=== PATIENT | male | born 1960 | race African-American/Black ===

== ENCOUNTER 2018-10-16 01:11 | Emergency (ER) | payer OTHER ==
--- NOTE | 2018-10-16 01:59 | ER Document Report ---
ED Psych Disorder / Suicide - General Chief Complaint: Psych Problem Stated Complaint: IVC WITH PAPERS Time Seen by Provider: 10/16/18 01:59 Primary Care Provider: HEIDY UNDERWOOD MD [ACTIVE STAFF] - Follow up as needed Mode of Arrival: Ambulatory Information source: Patient, Law Enforcement Notes: HISTORY OF PRESENT ILLNESS: Patient is a 57-year-old male with a past medical history of diabetes, hypertension, and substance abuse who presents with aggressive behavior who has been involuntarily committed by police after the patient became combative toward his and exhibiting psychotic behavior. Onset: Prior to arrival Provocation: Unknown Quality: Agitation Radiation: None Severity: Moderate Timing: Episodic SI/HI: None Hallucinations: None Current therapist: None Current treatment: None REVIEW OF SYSTEMS: CONSTITUTIONAL : Denies fever or chills, no sweats. Denies recent illness. EENT: Denies eye, ear, throat, or mouth pain or symptoms. Denies nasal or sinus congestion. CARDIOVASCULAR: Denies chest pain. RESPIRATORY: Denies cough, cold, or chest congestion. Denies shortness of breath, difficulty breathing, or wheezing. GASTROINTESTINAL: Denies abdominal pain. Denies nausea, vomiting, or diarrhea. Denies constipation. GENITOURINARY: Denies difficulty urinating, painful urination, burning, frequency, or blood in urine. FEMALE GENITOURINARY: Denies vaginal bleeding, abnormal or irregular periods. Last menstrual period MUSCULOSKELETAL: Denies neck or back pain or joint pain or swelling. SKIN: Denies rash or skin lesions. HEMATOLOGIC : Denies easy bruising or bleeding. LYMPHATIC: Denies swollen, enlarged glands. NEUROLOGICAL: Denies altered mental status or loss of consciousness. Denies headache. Denies weakness or paralysis or loss of use of either side. Denies problems with gait or speech. Denies sensory or motor loss. PSYCHIATRIC: Positive for acute aggression and agitation. Denies suicidal/homicidal thoughts. Denies anxiety or stress or depression. All other systems reviewed and negative. PHYSICAL EXAMINATION: GENERAL: Well-appearing, well-nourished and in no acute distress. HEAD: Atraumatic, normocephalic. No scalp deformity, depression, or crepitance. EYES: Pupils are 3 mm and equal/round/reactive to light, extraocular movements intact, sclera anicteric, conjunctiva are normal. ENT: Nares patent bilaterally, oropharynx clear without exudates or palatal petechia. Moist mucous membranes. No tonsil hypertrophy. NECK: Normal range of motion, supple without lymphadenopathy. LUNGS: Breath sounds present, equal, and clear to auscultation bilaterally. No wheezes, rales, or rhonchi. HEART: Regular rate and rhythm without murmurs, rubs, or gallops. 2+ peripheral pulses. Normal capillary refill. ABDOMEN: Soft, nontender, nondistended. Normoactive bowel sounds. No guarding, no rebound. No masses appreciated. BACK: Normal contour, no midline tenderness. Rectal exam deferred. GENITAL/PELVC: Deferred. EXTREMITIES: Normal range of motion, no pitting or edema. No cyanosis. NEUROLOGICAL: No focal neurological deficits. Moves all extremities spontaneously and on command. PSYCH: Normal mood, normal affect. No suicidal thoughts/ideations. No homicidal thoughts/ideations. No hallucinations. SKIN: Warm, dry, normal turgor, no rashes or lesions noted. ASSESSMENT AND PLAN: This patient is a 57-year-old male who presents with acute agitation and aggression toward his that is most likely secondary to substance abuse versus acute psychosis. 1. Will obtain medical clearance and maintain involuntary commitment for inpatient referral and evaluation. 2. Will observe overnight. TRAVEL OUTSIDE OF THE [place] IN LAST 30 DAYS: No - Related Data Allergies/Adverse Reactions: No Known Allergies Allergy (Unverified 09/01/11 06:42) Past Medical History - General Information source: Patient, Law Enforcement - Social History Smoking Status: Former Smoker Chew tobacco use (# tins/day): No Frequency of alcohol use: None Drug Abuse: None Lives with: Family Family History: Reviewed & Not Pertinent Patient has suicidal ideation: No Patient has homicidal ideation: No - Past Medical History Cardiac Medical History: Reports: Hx Hypercholesterolemia, Hx Hypertension Denies: Hx Atrial Fibrillation, Hx Congestive Heart Failure, Hx Coronary Artery Disease, Hx Heart Attack, Hx Peripheral Vascular Disease, Hx Pulmonary Embolism, Hx Heart Murmur Pulmonary Medical History: Reports: None Denies: Hx Asthma, Hx Bronchitis, Hx COPD, Hx Pneumonia, Hx Respiratory Failure, Hx Sleep Apnea, Hx Tuberculosis EENT Medical History: Reports: None Neurological Medical History: Reports: None. Denies: Hx Cerebrovascular Accident, Hx Seizures Endocrine Medical History: Reports: Hx Diabetes Mellitus Type 2. Denies: Hx Graves' Disease, Hx Hyperthyroidism, Hx Hypothyroidism Renal/ Medical History: Reports: None. Denies: Hx Benign Prostatic Hyperplasia, Hx End Stage Renal Disease, Hx Kidney Stones, Hx Peritoneal Dialysis Malignancy Medical History: Reports None, Denies Hx Lung Cancer GI Medical History: Reports: None. Denies: Hx Crohn's Disease, Hx Gastroesophageal Reflux Disease, Hx Hiatal Hernia, Hx Irritable Bowel, Hx Liver Failure, Hx Pancreatitis, Hx Ulcer Musculoskeletal Medical History: Reports None, Denies Hx Arthritis, Denies Hx Fibromyalgia, Denies Hx Multiple Sclerosis, Denies Hx Muscular Dystrophy Skin Medical History: Reports None Psychiatric Medical History: Reports: Hx Depression Denies: Hx Bipolar Disorder, Hx Dementia, Hx Post Traumatic Stress Disorder, Hx Schizophrenia Traumatic Medical History: Reports: None. Denies: Hx Fractures Infectious Medical History: Reports: None Past Surgical History: Reports: Hx Orthopedic Surgery. Denies: Hx Appendectomy, Hx Bowel Surgery, Hx Cholecystectomy, Hx Colostomy, Hx Coronary Artery Bypass Graft, Hx Gastric Bypass Surgery, Hx Herniorrhaphy, Hx Pacemaker, Hx Tonsillectomy - Immunizations Hx Diphtheria, Pertussis, Tetanus Vaccination: Yes Physical Exam - Vital signs Vitals: Temp Pulse Resp BP Pulse Ox 98.2 F 105 H 16 161/104 H 97 10/16/18 01:24 10/16/18 01:24 10/16/18 01:24 10/16/18 01:24 10/16/18 01:24 Course - Vital Signs Vital signs: Temp Pulse Resp BP Pulse Ox 98.2 F 105 H 16 161/104 H 97 10/16/18 01:24 10/16/18 01:24 10/16/18 01:24 10/16/18 01:24 10/16/18 01:24 - Laboratory Result Diagrams: 10/16/18 03:05 10/16/18 03:05 - EKG Interpretation by Nv EKG shows normal: Sinus rhythm Rate: Normal Rhythm: NSR Kimball/QRS: No: Right axis deviation, Left axis deviation, RBBB, LBBB, IVCD, LAHB/LAFB, LPHB/LPFB, Bifasicular block Voltage: No: Increased voltage, Consistant with LVH, Decreased voltage, Throughout, Limb leads P Waves: No: ISABEL, LAE, Absent, AV Dissociation, Other Heart block present: No: 1st Degree, Mobitz 1, Mobitz 2, CHB (3rd degree block) When compared to previous EKG there are: No significant change Discharge - Discharge Clinical Impression: Acute psychosis Condition: Stable Disposition: PSYCH HOSP/UNIT Referrals: HEIDY UNDERWOOD MD [ACTIVE STAFF] - Follow up as needed
[2018-10-16 03:38] LABS: ALANINE AMINOTRANSFERASE 15 U/L (21-72); ALBUMIN 3.5 g/dL (3.5-5.0); ALKALINE PHOSPHATASE 89 U/L (38-126); ANION GAP 10 (5-19); ASPARTATE AMINO TRANSFERASE 14 U/L (17-59); BILIRUBIN,DIRECT 0.3 mg/dL (0.0-0.4); BILIRUBIN,TOTAL 0.3 mg/dL (0.2-1.3); BLOOD UREA NITROGEN 20 mg/dL (7-20); CALCIUM 9.2 mg/dL (8.4-10.2); CARBON DIOXIDE 23 mmol/L (22-30); CHLORIDE 103 mmol/L (98-107); POTASSIUM 4.1 mmol/L (3.6-5.0); SODIUM 135.9 mmol/L (137-145); TOTAL PROTEIN 6.4 g/dL (6.3-8.2)
[2018-10-16 03:48] LABS: ACETAMINOPHEN < 10 ug/mL (10-30); ALCOHOL < 10 mg/dL (NONE DETECTED); SALICYLATE < 1.0 mg/dL (2.0-20.0)
[2018-10-16 03:50] LABS: GLUCOSE 493 mg/dL (75-110)
[2018-10-16 03:51] LABS: APPEARANCE,URINE CLEAR; BILIRUBIN,URINE NEGATIVE (NEGATIVE); COLOR,URINE STRAW; GLUCOSE, URINE >=500 mg/dL (NEGATIVE); KETONES,URINE TRACE mg/dL (NEGATIVE); LEUKOCYTE ESTERASE,URINE NEGATIVE (NEGATIVE); NITRITE,URINE NEGATIVE (NEGATIVE); PROTEIN,URINE NEGATIVE (NEGATIVE); URINE SPECIFIC GRAVITY 1.028; UROBILINOGEN,URINE NEGATIVE mg/dL (<2.0)
[2018-10-16] MEDS ORDERED: NORMAL SALINE 1000 ML 1,000 ML IV ONE (03:55)
[2018-10-16] MEDS ORDERED: INSULIN REG, HUMAN 100 UNIT/ML 3 ML VIAL (PYX) IV ONE (03:56)
[2018-10-16 04:06] LABS: URINE AMPHETAMINES SCREEN NEGATIVE; URINE BARBITURATES SCREEN NEGATIVE; URINE BENZODIAZEPINES SCREEN NEGATIVE; URINE COCAINE SCREEN NEGATIVE; URINE MARIJUANA (THC) SCREEN NEGATIVE; URINE METHADONE SCREEN NEGATIVE; URINE PHENCYCLIDINE SCREEN NEGATIVE
[2018-10-16 05:18] LABS: ABSOLUTE BASOPHILS # (AUTO) 0.1 10^3/uL (0.0-0.2); ABSOLUTE EOSINOPHILS # (AUTO) 0.1 10^3/uL (0.0-0.6); ABSOLUTE LYMPHOCYTES (AUTO) 1.5 10^3/uL (0.5-4.7); ABSOLUTE MONOCYTES (AUTO) 0.5 10^3/uL (0.1-1.4); ABSOLUTE NEUT (AUTO) 3.6 10^3/uL (1.7-8.2); BASOPHILS % (AUTO) 1.3 % (0-2); EOSINOPHILS % (AUTO) 1.1 % (0-6); HEMATOCRIT 38.2 % (37.9-51.0); HEMOGLOBIN 12.9 g/dL (13.5-17.0); LYMPHOCYTES % (AUTO) 26.3 % (13-45); MEAN CORPUSCULAR HEMOGLOBIN 28.5 pg (27.0-33.4); MEAN CORPUSCULAR HGB CONC 33.7 g/dL (32.0-36.0); MEAN CORPUSCULAR VOLUME 85 fl (80-97); MONOCYTES % (AUTO) 9.1 % (3-13); PLATELET COUNT 200 10^3/uL (150-450); RED BLOOD COUNT 4.52 10^6/uL (4.35-5.55); RED CELL DISTRIBUTION WIDTH 13.1 % (11.5-14.0); SEGMENTED NEUTROPHILS % (AUTO) 62.2 % (42-78); TOTAL CELLS COUNTED % (AUTO) 100 %; WHITE BLOOD COUNT 5.8 10^3/uL (4.0-10.5)
[2018-10-16] MEDS ORDERED: INSULIN REG, HUMAN 100 UNIT/ML 3 ML VIAL (PYX) SUBCUT ONE (09:30)
[2018-10-16] MEDS ORDERED: METFORMIN HCL 500 MG TABLET PO SCH (10:00)
[2018-10-16] MEDS ORDERED: DEXTROSE 40% GEL 15 GM TUBE PO PRN ×2 (13:37)
[2018-10-16] MEDS ORDERED: GLUCAGON,HUMAN RECOMB 1 MG INJ IM PRN (13:37)
[2018-10-16] MEDS ORDERED: DEXTROSE 50%-WATER 25 GM/50 ML DISP.SYRIN IV PRN ×2 (13:37)
[2018-10-16] MEDS: INSULIN REG, HUMAN 100 UNIT/ML 3 ML VIAL (PYX) SUBCUT SCH ×3 (14:00→22:23)
[2018-10-16] MEDS ORDERED: INSULIN REG, HUMAN 100 UNIT/ML 3 ML VIAL (PYX) SUBCUT SCH (16:00)
[2018-10-16] MEDS ORDERED: BENZTROPINE MESYLATE 1 MG TABLET PO ONE (16:55)
--- NOTE | 2018-10-16 16:59 | ER Document Report ---
Doctor's Note Notes: 10/16/18 16:56 This is a 57-year-old man with a history of diabetes who presented to the emergency room with worsening depression. His labs have been significant for hypoglycemia. He has had no anion gap. He is currently on Metforman 500 mg twice daily and a sliding scale. I have added a hemoglobin A1c, increased his m etformin to thousand milligrams twice daily and will continue the sliding scale. He is currently without complaint. His heart is regular, lungs are clear and his abdomen is soft and nontender. He does have some complaints of some numbness to the lower extremities consistent with a diabetic neuropathy. Otherwise, his extremities have good pulses and good cap refill. The plan is for continued psychiatric evaluation.
[2018-10-16] MEDS: OLANZAPINE 5 MG TABLET PO SCH (18:26)
[2018-10-16] MEDS: METFORMIN HCL 500 MG TABLET PO SCH (18:27)
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
[2018-10-17] MEDS: INSULIN REG, HUMAN 100 UNIT/ML 3 ML VIAL (PYX) SUBCUT SCH ×2 (07:53→11:40)
[2018-10-17] MEDS ORDERED: BENZTROPINE MESYLATE 1 MG TABLET PO SCH (10:00)
[2018-10-17] MEDS: OLANZAPINE 5 MG TABLET PO SCH (10:12)
[2018-10-17] MEDS: METFORMIN HCL 500 MG TABLET PO SCH (10:12)
--- NOTE | 2018-10-17 11:03 | EKG REPORT ---
SEVERITY:- ABNORMAL ECG - SINUS RHYTHM MULTIPLE ATRIAL PREMATURE COMPLEXES LVH WITH IVCD, LAD AND SECONDARY REPOL ABNRM : Confirmed by: Shanika Sandoval 17-Oct-2018 11:02:45
--- NOTE | 2018-10-17 12:40 | PSYCHOLOGICAL NOTE ---
Psych Note - Psych Note Date seen by psych provider: 10/17/18 Time seen by psych provider: 08:22 - Re evaluation from [id number]. Spoke to at 1231. Psych Note: Reason for Consult: 1st re evaluation, IVC, noncompliance with medications, not taking medications to get sick, history of depression Contact Permissions: Christie Moralez [phone] Patient is a 57 year old male who is in the ED on IVC petitioned by [facility] for noncompliance with medications, not taking medications to get sick and history of depression with previous hospitalizations. He was started on medications (Zyprexa/Cogentin) yesterday and held overnight to ensure tolerated medication well. he has had 3 doses of the Zyprexa as of this morning. Today he stated he was doing "pretty good." He denied side effects from medications and none observed. He denied SI/HI. He stated he would continue the medications when discharged and would follow up with the [facility] for medication management "but not sure about therapy," when it was suggested. He has been calm and cooperative in the ED. There was no observed psychosis that interfered with ability to interact with others and express wants/needs. He made fair eye contact when he answered questions and thinking was linear. Diagnosis: V62.82 (Z63.4) Uncomplicated Bereavement V15.81 (Z91.19) Nonadherence to Medical Treatment (noncompliant with medical and mental health medications/ follow up) 311 (F32.9) Unspecified Depressive Disorder by History Impression/Plan: Patient is cleared from acute psychiatric services. Recommendation to rescind IVC. He denied SI/HI and no observed psychosis that appeared to interfere with ability to interact with others appropriately and express needs/wants. He was started on medications yesterday to aid in mood stabilization. He has a history of depression, had been off medications a month or longer, is dealing with grief surrounding the of his mother a couple months ago (he was close to her) and has not been sleeping/resting well per . He stated he would continue the medications and [facility]. He has a follow up appointment with the [facility] on 10/23/18 at 0900. okay with patient coming home. She agreed to be in control of medications and administration. Patient and sister provided with outpatient MH resource sheet which documented appointment date and time, as well as highlighted [facility] for crisis/talk therapy/linkage to other services/supports. aware patient's sister present and okay with her taking patient home. Consulted with Dr. Garrett regarding the management and care of patient. ED Physician in agreement with recommendations.
[2018-10-17 13:50] VITALS: BP 136/80
--- NOTE | 2018-10-17 18:48 | ER Document Report ---
Entered by CURLY SNOW SCRIBE 10/17/18 [id number] Acting as scribe for:ANTWON CAMPBELL DO Doctor's Note Notes: 10/17/18 18:36 57-year-old male stating that he was brought into the emergency department on IVC paperwork because his called the "[employer]" on him. Patient states that he has been off his psychiatric medications for several days and he feels like when he is on his medications he is able to be a productive member of society. Patient wishes to go home, stating he will take his medications as p rescribed. 10/17/18 18:47 Has no complaints, is in no acute distress. Able to answer all my questions without difficulty. Moving all 4 extremities equally. No respiratory distress. 10/17/18 18:48 Patient is psychiatrically cleared. Will be discharged to home. I personally performed the services described in the documentation, reviewed and edited the documentation which was dictated to the scribe in my presence, and it accurately records my words and actions.
== END 2018-10-17 14:07 | disposition home or self-care (01) ==
LOC: ER 01:11
DX: F23 Brief psychotic disorder (principal); F32.9 Major depressive disorder, single episode, unspecified; T50.906A Underdosing of unspecified drugs, medicaments and biological substances, initial encounter; Z91.14 Patient's other noncompliance with medication regimen; R45.851 Suicidal ideations; E11.649 Type 2 diabetes mellitus with hypoglycemia without coma; Z79.84 Long term (current) use of oral hypoglycemic drugs; R20.0 Anesthesia of skin; I10 Essential (primary) hypertension; Z63.4 Disappearance and death of family member; Z87.891 Personal history of nicotine dependence
CPT/HCPCS: 93005; 99285; 96361; 36415; 82962; 80307 ×4; 85025; 80053; 81001; 83036; 93010; J1815 ×2; J7030